=== PATIENT | male | born 1940 | race Caucasian/White ===

== ENCOUNTER 2021-12-14 17:05 | Emergency (ER) | payer MEDICARE, OTHER ==
[~2021-12-14 17:05] MED LIST: ACETAMINOPHEN-1 EAC1 PO; MELOXICAM15 MG PO; NORCO 5-325 TA1 EACH PO; VALTREX1000 MG PO
== END 2021-12-14 18:59 | disposition left against medical advice (07) ==
LOC: FER 17:05
DX: M54.50 Low back pain, unspecified (principal); Z53.8 Procedure and treatment not carried out for other reasons
CPT/HCPCS: 72110

== ENCOUNTER 2022-07-19 11:17 | Emergency (ER) | payer MEDICARE, OTHER ==
[2022-07-19 12:23] LABS: BASOPHIL 0.5 % (0-2); EOSINOPHIL 1.3 % (0-7); HCT 43.4 % (42.0-52.0); HGB 14.5 g/dl (13.2-18.0); MCH 31.5 pg (25.0-31.0); MCHC 33.4 g/dL (32.0-36.0); MCV 94.3 fL (78.0-100.0); MONOCYTE 3.6 % (0-12); MPV 10.1 fL (6.0-9.5); NEUTROPHIL 20.4 % (41-80); NRBC 0; PLT 193 K/uL (150-400); RDW 13.1 % (11.5-14.0); WBC 23.4 K/uL (4.0-10.5)
[2022-07-19 12:44] LABS: BUN/CREAT RATIO (CALC) 21.2 RATIO; C-REACTIVE PROTEIN 1.4 mg/dL (<=0.90); CREATININE 0.66 mg/dL (0.67-1.17); POTASSIUM 4.1 mmol/L (3.5-5.1)
[2022-07-19] MEDS ORDERED: CEPHALEXIN500 MG PO (13:19)
== END 2022-07-19 13:39 | disposition home or self-care (01) ==
LOC: FER 11:17
PROVIDERS: Internal Medicine
DX: L03.113 Cellulitis of right upper limb (principal)
CPT/HCPCS: 36415; 73110; 73130; 80048; 84550; 85025; 86140